=== PATIENT | female | born 2000 | race Caucasian/White ===

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

== ENCOUNTER 2019-05-10 23:36 | Emergency (ER) | payer OTHER ==
[2019-05-11] MEDS ORDERED: LEVETIRACETAM 1000 MG/NACL-ISO 1,000 MG/100 ML RTUPB IV ONE (00:40)
--- NOTE | 2019-05-11 00:43 | ER Document Report ---
ED General - General Chief Complaint: Seizure Stated Complaint: POSSIBLE SEIZURE Time Seen by Provider: 05/11/19 00:33 TRAVEL OUTSIDE OF THE [place] IN LAST 30 DAYS: No - HPI Notes: 18-year-old female presents with a grand mal seizure. Patient had a witnessed seizure this evening just prior to coming in. Witnessed by her boyfriend. Lasting less than a minute half. Grand mal in nature, postictal state after now resolved. She did strike her head against something on the floor and has some mild posterior auricular pain and tenderness. No vomiting. No persistent neurologic complaint. No recent antecedent illness. She has a history of seizures from several years ago, but quit taking medicine in 2017 because she felt better and she states the medicine made her feel poorly. Moderate intensity, sudden onset, nonradiating. No other modifying factors, no other associated symptoms, no other provocative or palliative factors. - Related Data Allergies/Adverse Reactions: No Known Allergies Allergy (Verified 01/23/17 01:18) Past Medical History - Social History Smoking Status: Never Smoker Family History: Reviewed & Not Pertinent Patient has suicidal ideation: No Patient has homicidal ideation: No - Medical History Notes: Includes prior seizures Neurological Medical History: Reports: Hx Seizures Renal/ Medical History: Denies: Hx Peritoneal Dialysis - Immunizations Hx Diphtheria, Pertussis, Tetanus Vaccination: Yes Review of Systems - Review of Systems Notes: Review of systems as in the history of present illness, otherwise negative x 10 systems. Physical Exam - Vital signs Vitals: Temp Pulse Resp BP Pulse Ox 98.5 F 82 17 114/73 98 05/10/19 23:41 05/10/19 23:41 05/10/19 23:41 05/10/19 23:41 05/10/19 23:41 - Notes Notes: General: Well developed, well nourished. HEENT: Normocephalic, atraumatic. PEERL. No conjunctival injection. Neck: Supple, no significant adenopathy. No meningismus. Chest: Clear bilaterally, good air entry. Abdomen: Soft, non-tender, nondistended. Back: Non-tender. Normal ROM Extremities: No cyanosis, clubbing or edema. Vascular: Symmetric peripheral pulses, normal capillary refill. Skin: No significant rash. No petechiae or purpura. Motor: Normal tone and power. Symmetric. Neurologic: Alert and oriented to person place and time. Cranial nerves II-12 are intact. Sensation intact and symmetric in the upper and lower extremities. No cerebellar findings including finger-nose testing. No clonus. Gait normal. Funduscopic exam shows crisp disc margins, no evidence of papilledema. Course - Re-evaluation Re-evalutation: 05/11/19 00:42 Well-appearing female with recurrent seizure. No high risk features at this point. Will check UPT, chemistries. No indication for emergent imaging. She has an established seizure history and has been seizure-free for some time. After extensive discussion we elected to place her on Keppra, received IV load, and outpatient follow-up. 05/11/19 02:45 Patient has been stable and done well throughout her ED course. No recurrent seizures. test negative, chemistries unremarkable. Discharge home with a prescription for Keppra, outpatient neurology follow-up she already has an established neurologist. - Vital Signs Vital signs: Temp Pulse Resp BP Pulse Ox 98.5 F 82 17 114/73 98 05/10/19 23:41 05/10/19 23:41 05/10/19 23:41 05/10/19 23:41 05/10/19 23:41 - Laboratory Result Diagrams: 05/11/19 01:00 Discharge - Discharge Clinical Impression: Seizure Condition: Good Disposition: HOME, SELF-CARE Instructions: Seizure, Known Epileptic ([facility]) Additional Instructions: Follow-up with your neurologist within the next week, primary care if neurology is unavailable. Prescriptions: Levetiracetam [Keppra 500 mg Tablet] 500 mg PO Q12 #60 tablet Referrals: MARTHA HART PA-C [Primary Care Provider] - Follow up in 1 week
[2019-05-11 01:41] LABS: ANION GAP 8 (5-19); BLOOD UREA NITROGEN 18 mg/dL (7-20); CALCIUM 9.9 mg/dL (8.4-10.2); CARBON DIOXIDE 24 mmol/L (22-30); CHLORIDE 106 mmol/L (98-107); GLUCOSE 88 mg/dL (75-110); POTASSIUM 3.8 mmol/L (3.6-5.0)
[2019-05-11 03:13] VITALS: BP 100/54
== END 2019-05-11 03:13 | disposition home or self-care (01) ==
LOC: ER 23:36
DX: G40.409 Other generalized epilepsy and epileptic syndromes, not intractable, without status epilepticus (principal)
CPT/HCPCS: 99284; 96365; 36415; 81025; 80048; J1953